=== PATIENT | male | born 1980 | race Caucasian/White ===

== ENCOUNTER 2020-12-20 19:48 | Emergency (ER) | payer OTHER, MEDICAID ==
[~2020-12-20] VITALS: Ht 180.3 cm; Wt 106.6 kg
[~2020-12-20 19:48] MED LIST: AMBIEN5 MG PO; BENADRYL25 MG PO; COLACE100 MG PO; DILAUDID1 MG/1 ML IV PUSH; DULCOLAX5 MG PO; FEVERALL650 MG RECTAL; FIBERCON625 M1 PO; FLEXERIL PO; HYDROCODONE-AP1 EAC6 PO; IBUPROFEN 800800 M1 PO; IBUPROFEN 800800 MG PO; MEDROLDOSEPACK PO; MELATONIN3 MG PO; MILK OF MA2400 MG/10 PO; MIRALAX17 G1 PO; NEURONTIN 300300 M1 PO; NEURONTIN300 MG PO; NORCO 5-325 TA1 EAC1 PO; ONDANSETRON HCL4 M2 IV; ONDANSETRON HCL4 M2 PO; PERCOCET 5-3251 EACH PO; PERCOCET 7.5-31 EACH PO; PERCOCET PO; PHENERGAN 25 MG25 M1 IV; PHENERGAN 25 MG25 M1 PO; SOLU-MEDRO125 MG/24 IV; TRAMADOL 50 MG50 MG PO; TYLENOL325 MG PO; VALIUM5 MG PO; ZANTAC 150MG T150 MG; ZOFRAN ODT4 MG PO
[2020-12-20] MEDS ORDERED: FLEXERIL PO (21:35)
[2020-12-20] MEDS ORDERED: PERCOCET 5-3251 EACH PO ×2 (21:43→21:49)
[2020-12-20 22:04] VITALS: BP 145/94
== END 2020-12-20 22:04 | disposition home or self-care (01) ==
LOC: M.ERS 19:48
DX: S39.012A Strain of muscle, fascia and tendon of lower back, initial encounter (principal); S29.012A Strain of muscle and tendon of back wall of thorax, initial encounter; S16.1XXA Strain of muscle, fascia and tendon at neck level, initial encounter; S09.8XXA Other specified injuries of head, initial encounter; Z98.890 Other specified postprocedural states; Z90.89 Acquired absence of other organs; Z88.6 Allergy status to analgesic agent; Z88.8 Allergy status to other drugs, medicaments and biological substances; W10.8XXA Fall (on) (from) other stairs and steps, initial encounter; Y93.89 Activity, other specified; Y92.89 Other specified places as the place of occurrence of the external cause; Y99.8 Other external cause status